=== PATIENT | male | born 1950 | race Caucasian/White ===

== ENCOUNTER → 2025-02-12 11:38 | Outpatient (BNVA) | payer MEDICARE, SELFPAY | PROVIDERS: PCP Nurse Practitioner Family; Visit Provider Internal Medicine Cardiovascular Disease | DX: R07.9 Chest pain, unspecified (principal); I10 Essential (primary) hypertension; E78.5 Hyperlipidemia, unspecified; R55 Syncope and collapse; Z86.73 Personal history of transient ischemic attack (TIA), and cerebral infarction without residual deficits; Z79.82 Long term (current) use of aspirin; Z87.891 Personal history of nicotine dependence; Z98.61 Coronary angioplasty status; G45.9 Transient cerebral ischemic attack, unspecified; R06.09 Other forms of dyspnea | CPT/HCPCS: 93005; 99204 ==

== ENCOUNTER 2025-02-27 08:55 | Outpatient (CLI) | payer MEDICARE, SELFPAY ==
[2025-02-27 09:17] VITALS: BMI 28.3
--- NOTE | 2025-02-27 09:54 | ECG_ITS ---
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 Interpretive Statements Lung unchanged pre/post procedure; Intraprocedure shortess of breath; Symptoms resoled by discharge PROCEDURE: The baseline electrocardiogram showed normal sinus rhythm with diffuse nonspecific T wave changes. At the baseline, the patient's blood pressure was 147/70 mm Hg with a heart rate of 71. The patient exercised for 5 minutes and 21 seconds on a standard Shaggy protocol. Patient attained a maximum heart rate of 140 beats per minute(94% of the maximum predicted heart rate) with a blood pressure at the peak exercise of 181/90 mm Hg. The EKG at the peak exercise revealed no significant changes. Patient did not have any chest pain or any significant arrhythmis with the exercise Sestamibi was injected 1 minute prior to the peak exercise During the recovery phase, there were no new changes. Blood pressure at the end of the recovery phase was 102/58 mm Hg with a heart rate of 99 per minute. CONCLUSION: 1. No significant EKG changes with the [treadmill exercise 2. No exercise-induced chest pain or cardiac arrhythmia 3. Impaired exercise tolerance, attained a maximum of 7.0 METs 4. Sestamibi/Sestamibi perfusion results pending; see separate report. Electronically Signed On 03-02-2025 20:37:17 TRAINING MGR by Antonio Paredes M.D. [email or web address]
--- NOTE | 2025-02-27 09:54 | NMCV_ITS ---
NM allegra perf SPECT r/s* [id number] Tonny Gomez Age: 74 Gender: M : 1950 Exam Date: 02/27/2025 10:11 Ordering Phys: Antonio Paredes MD ([email or web address]) Technologist: NAM Wise Exam Location: [facility] Indications: cp STRESS TEST Please see separate stress test report in [facility] for full findings IMAGE PROTOCOL Rest/Stress 1 Exercise Day Radiopharmaceutical Dose (mCi) Administration Site Administered by Rest: Tc-99m 10.5 IV Carole Green, ANIMAL PHYSIOLOGY TEACHER Sestamibi Stress:Tc-99m 32.7 IV Carole Green, ANIMAL PHYSIOLOGY TEACHER Sestamibi Rest: 27-Feb-2025 60 Discovery 630 Stress: 27-Feb-2025 15 Discovery 630 Radiopharmaceutical was injected at 91% maximum heart rate. Images obtained in supine and prone position. SPECT RESULTS Technical Quality: Good Raw Data Analysis: Normal Image Corrections: No attenuation or motion correction applied Summed Stress Score: 0 Summed Rest Score: 1 Summed Difference Score: 0 PERFUSION FINDINGS A small area of decrease tracer uptake was noted in the apical inferior wall region. No significant reversibility is noted in this region. FUNCTIONAL RESULTS (calculated via Gated SPECT) Stress Image LV EF (%): 87 Stress EDV (mL):60 TID: 0.65 Stress ESV (mL):8 FUNCTIONAL FINDINGS: Segmental wall motion analysis revealing no gross wall motion abnormalities IMPRESSIONS 1. Myocardial perfusion imaging revealing small area of persistent decreased tracer uptake involving the apical inferior region, suggesting myocardial scarring versus attenuation artifact 2. Normal LV ejection fraction of 87%. 3. LV wall motion analysis revealing no gross wall motion abnormalities. 4. Normal LV volume Low probability for coronary ischemia, based on the above findings Dr Antonio Paredes MD FACC (Electronically Signed) Final Date: 27 February 2025 12:55 S
[2025-02-27 11:24] VITALS: BP 102/58; PULSE 97
--- NOTE | 2025-02-27 14:15 | USCV_ITS ---
Jason Tonny Age: 74 Gender: M : 1950 Exam Date: 02/27/2025 09:26 Ordering Phys: Antonio Paredes MD ([email or web address]) Technologist: Romeo Briones [place] [facility] [place]ication: cp BP: / HR: 72 Rhythm: Sinus Technical Quality: MEASUREMENTS (Male / Female) Normal Values 2D ECHO LV Diastolic Diameter PLAX 4.0 cm 4.2 - 5.9 / 3.9 - 5.3 cm IVS Diastolic Thickness 1.3 cm 0.6 - 1.0 / 0.6 - 0.9 cm IVS Systolic Thickness 1.7 cm LVPW Diastolic Thickness 1.3 cm 0.6 - 1.0 / 0.6 - 0.9 cm LVPW Systolic Thickness 1.5 cm LVOT Diameter 2.0 cm LV Ejection Fraction 2D Teich 61.7 % LV Ejection Fraction MOD 4C 66.2 % LV Ejection Fraction MOD 2C 62.8 % LV Ejection Fraction 2C AL 62.8 % LA Diameter 3.0 cm RA Systolic Volume 4C AL 27.8 ml RA Systolic Volume 4C MOD 28.6 ml Aorta at Sinotubular Diameter 3.5 cm IVC Diameter 1.6 cm M-MODE LA Ao Ratio MM 1.0 AV Cusp Separation MM 2.5 cm DOPPLER AV Peak Velocity 168.0 cm/s LVOT Peak Velocity 105.0 cm/s AV Area Cont Eq vti 3.2 cm squared AV Area Cont Eq pk 2.1 cm squared MV Peak Velocity 108.0 cm/s MV Area PHT 2.5 cm squared TR Peak Velocity 161.0 cm/s TR Peak Gradient 10.4 mmHg TV Peak E Velocity 76.0 cm/s PV Peak Velocity 104.0 cm/s FINDINGS Left Ventricle Normal left ventricular size and systolic function, EF 63%.mild left ventricular hypertrophy. Grade I/IV diastolic dysfunction (abnormal relaxation filling pattern), normal to mildly elevated filling pressures. Right Ventricle Normal right ventricular size and systolic function. Right Atrium Normal right atrial size. Left Atrium Normal left atrial size. IA Septum Normal appearance of the interatrial septum. Mitral Valve No gross abnormalities noted Aortic Valve Thickened aortic valve. Tricuspid Valve Trace tricuspid valve regurgitation. Estimated pulmonary artery peak systolic pressure within normal limit Pulmonic Valve No gross abnormalities noted Pericardium No pericardial effusion. Aorta Normal aortic annulus size. IVC Normal inferior vena cava. CONCLUSIONS Normal left ventricular size and systolic function, EF 63%.mild left ventricular hypertrophy. Grade I/IV diastolic dysfunction (abnormal relaxation filling pattern), normal to mildly elevated filling pressures. Thickened aortic valve. Trace tricuspid valve regurgitation. Estimated pulmonary artery peak systolic pressure within normal limit. There is no pericardial effusion. There are no intracardiac masses. No similar previous studies are available for comparison Dr Antonio Paredes MD FAC (Electronically Signed) Final Date: 02 March 2025 19:17 S
--- NOTE | 2025-02-27 15:15 | USCV_ITS ---
Tonny Gomez Age: 74 Gender: M : 1950 Exam Date: 02/27/2025 09:43 Ordering Phys: Antonio Paredes MD ([email or web address]) Technologist: Romeo Briones Exam Location: [facility] [place] Indication: tia Risk Factors: Previous Vascular Surgery: Right Brachial BP: / Left Brachial BP: / Right Left Velocity (cm/s) Spectral Plaque Velocity (cm/s) Spectral Plaque Syst/Diast Broadening Syst/Diast Broadening 95.70/ 21.90 Prox CCA 96.60 / 23.50 110.90/28.10 Mid CCA 88.20 / 19.70 102.10/23.70 Hetro Distal CCA 99.00 / 25.10 Hetro 76.00/ 15.00 Hetro Prox ICA 96.00 / 21.00 Hetro 116.30/27.80 Hetro Mid ICA 83.90 / 28.40 Hetro 86.10/ 27.80 Distal ICA 91.10 / 24.90 117.40 ECA 131.10 1.10 ICA/CCA 0.90 Antegrade Vertebral Antegrade 36.60/ 8.40 cm/s 36.80/ 8.40 cm/s Bi Subclavian Bi 69.60 51.80 FINDINGS Mild to moderate plaque to the bifurcations of the bilaterally. Thickening in the ICA disease bilaterally. Normal Doppler flow velocity in the external carotid vertebral and subclavian arteries bilaterally CONCLUSIONS Mild to moderate plaque bilaterally at the bifurcations with velocity Doppler features consistent with a less than 50% stenosis No significant stenosis in the external carotid, vertebral and subclavian arteries based on the above findings. No similar previous studies are available for comparison Dr Antonio Paredes MD [facility] (Electronically Signed) Final Date: 02 March 2025 19:25 S
== END 2025-02-27 08:56 | disposition home or self-care (01) ==
PROVIDERS: PCP Nurse Practitioner Family; Visit Provider Internal Medicine Cardiovascular Disease
DX: G45.9 Transient cerebral ischemic attack, unspecified (principal); R06.09 Other forms of dyspnea; R07.9 Chest pain, unspecified; R94.39 Abnormal result of other cardiovascular function study; R06.02 Shortness of breath; I49.8 Other specified cardiac arrhythmias; R94.31 Abnormal electrocardiogram [ECG] [EKG]; I51.89 Other ill-defined heart diseases; I51.7 Cardiomegaly; I35.8 Other nonrheumatic aortic valve disorders; Z98.61 Coronary angioplasty status
CPT/HCPCS: 36415; 78452; 93017; 93306; 93880; A9500